=== PATIENT | male | born 1975 | race Caucasian/White ===

== ENCOUNTER 2021-11-04 04:21 | Emergency (ER) | payer BC, OTHER ==
[~2021-11-04] VITALS: Ht 182.9 cm; Wt 138.6 kg
[2021-11-04 04:40] VITALS: BP 163/99
[2021-11-04 05:22] LABS: Basophils # (auto) 0.1 10 ^3/uL (0-0.2); Basophils % (auto) 1.3 % (0.0-2.0); Eosinophils # (auto) 0.1 10 ^3/uL (0-0.8); Eosinophils % (auto) 1.6 % (0.0-7.0); Hematocrit 53.1 % (41.0-53.0); Hemoglobin 17.1 g/dL (13.5-17.5); Lymphocytes % (auto) 29.2 % (10.0-50.0); Mean Corpuscular Hemoglobin 28.5 pg (28.0-32.0); Mean Corpuscular Hgb Conc. 32.2 g/dL (32.0-36.0); Mean Corpuscular Volume 88.3 fL (80.0-100.0); Monocytes # (auto) 0.9 10 ^3/uL (0-1.3); Monocytes % (auto) 12.9 % (0.0-12.0); Neutrophils # (auto) 3.8 10 ^3/uL (1.6-8.6); Nucleated Red Blood Cells % 0.1 %; Red Blood Cells 6.01 10^6/uL (4.5-5.90); Red Cell Distribution Width 15.8 % (11.8-14.3)
[2021-11-04 05:40] LABS: Albumin 3.7 g/dL (3.4-5.0); Calcium 8.7 mg/dL (8.5-10.1); Magnesium 2.3 mg/dL (1.6-2.6); Potassium 4.1 mmol/L (3.5-5.1)
== END 2021-11-04 08:18 | disposition left against medical advice (07) ==
LOC: ER 04:21
DX: R51.9 Headache, unspecified (principal); R07.89 Other chest pain; Z53.21 Procedure and treatment not carried out due to patient leaving prior to being seen by health care provider
CPT/HCPCS: 36415; 70450; 71045; 80053; 83735; 83880; 84484; 85025; 93005

== ENCOUNTER 2024-02-09 11:31 | Inpatient (IN) | payer BC, MEDICAID ==
[~2024-02-09] VITALS: Ht 185.4 cm; Wt 133.6 kg
--- NOTE | 2024-02-09 13:51 | ED.PDOC ---
History of Present Illness HPI Comments 49 y/o M, Hx of DM, cholelithiasis, HLD, HTN, and obesity, presents with c/o abdominal and back pain, abdominal distension, nausea, vomiting, and diarrhea, today. Patient endorses on sudden onset of symptoms at 0200, this morning. Patient comments on pain originating and distension localized around his RUQ r egion, with pain radiating to his RLQ and back and rates it a 9.5/10 in severity, currently. He also reports on vomiting 26x and having multiple diarrhea episodes with "green bile" production. Patient admits to Hx of "gallstones" diagnosis 1x year ago and consuming EtOH and spice food, last night. Patient endorses no additional relevant or pertinent Hx, such as recent injuries or sick contact. He denies having any hematemesis, hematochezia, urinary symptoms, or other associated symptoms or modifiers at this time. Chief Complaint: Abdominal Pain Time Seen by MD: 13:30 Reviewed Notes: Nurses Notes, Medications, Allergies Allergies: Coded Allergies: NO KNOWN ALLERGIES (Unverified , 11/04/21) Information Source: Patient Mode of Arrival: Ambulatory Severity: Moderate Timing: Hours Duration: Since onset Prehospital treatment: None Past Medical History PAST MEDICAL HISTORY: DM, Gallstones, High Lipids, HTN Past Medical History (Other): obesity Surgical History: Hernia Repair (umbilical and inguinal hernias ) Family History Family History: Reviewed,noncontributory to illness, No family hx of Cancer, No family hx of Heart lisbeth, No family hx of HTN, No family hx ofKidney lisbeth, No family hx of Liver lisbeth, No family hx of Lung lisbeth, No family hx of Stroke, Family hx of DM Social History Smoker: Non-Smoker Alcohol: Occasionally Drugs: Denies Drug Use Lives In: Home Constitutional: denies: chills, diaphoresis, fatigue, fever, malaise, sweats, weakness, others EENTM: denies: blurred vision, double vision, ear bleeding, ear discharge, ear drainage, ear pain, ear ringing, eye pain, eye redness, hearing loss, mouth pain, mouth swelling, nasal discharge, nose bleeding, nose congestion, nose pain, photophobia, tearing, throat pain, throat swelling, voice changes, others Respiratory: denies: cough, hemoptysis, orthopnea, SOB at rest, shortness of breath, SOB with excertion, stridor, wheezing, others Cardiovascular: denies: chest pain, dizzy spells, diaphoresis, Dyspnea on exertion, edema, irregular heart beat, left arm pain, lightheadedness, palpitations, PND, syncope, others Gastrointestinal: reports: abdomen distended, abdominal pain, diarrhea, nausea, vomiting; denies: blood streaked bowels, constipated, dysphagia, difficulty swallowing, hematemesis, melena, poor appetite, poor fluid intake, rectal bleeding, rectal pain, others Genitourinary: denies: burning, dysuria, flank pain, frequency, hematuria, incontinence, penile discharge, penile sore, pain, testicle pain, testicle swelling, urgency, others Neurological: denies: dizziness, fainting, headache, left sided numbness, left sided weakness, numbness, paresthesia, pre-existing deficit, right sided numbness, right sided weakness, seizure, speech problems, tingling, tremors, wea kness, others Musculoskeletal: reports: back pain; denies: gout, joint pain, joint swelling, muscle pain, muscle stiffness, neck pain, others Integumetry: denies: bruises, change in color, change in hair/nails, dryness, laceration, lesions, lumps, rash, wounds, others Allergic/Immunocompromised: denies: Difficulty Healing, Frequent Infections, Hives, Itching, others Hematologic/Lymphatic: denies: anemia, blood clots, easy bleeding, easy bruising, swollen glands, others Endocrine: denies: excessive hunger, excessive sweating, excessive thirst, excessive urination, flushing, intolerance to cold, intolerance to heat, unexplained weight gain, unexplained weight loss, others Psychiatric: denies: anxiety, bipolar disorder, depression, hopeless, panic disorder, schizophrenia, sleepless, suicidal, others All Other Systems: Reviewed and Negative Physical Exam General Appearance: Moderate Distress HEENT: Normal ENT Inspection, Pharynx Normal, TMs Normal Neck: Full Range of Motion, Non-Tender, Normal, Normal Inspection Respiratory: Chest Non-Tender, Lungs Clear, No Accessory Muscle Use, No Respiratory Distress, Normal Breath Sounds Cardiovascular: No Edema, No JVD, No Murmur, No Gallop, Normal Peripheral Pulses, Regular Rate/Rhythm Breast Exam: Deferred Gastrointestinal: No Organomegaly, No Pulsatile Mass, Normal Bowel Sounds, RLQ, RUQ, Soft, Tenderness Genitalia: Deferred Pelvic: Deferred Rectal: Deferred Extremities: No calf tenderness, Normal capillary refill, No pedal edema Musculoskeletal : Apperance: Normal 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 Was a procedure done?: No Differential Dx Considerations may include: cholelithiasis, cholecystitis, gastritis, gastroenteritis, colitis, GERD PUD, spoiled food, UTI X-Ray, Labs, Meds, VS Vital Signs Date Time Temp Pulse Resp B/P (MAP) Pulse Ox O2 Delivery O2 Flow Rate FiO2 02/09/24 12:01 111 02/09/24 11:57 97.4 116 20 124/78 (93) 97 Lab Test 02/09/24 13:50 02/09/24 11:44 Range/Units White Blood Count 8.2 4.4-10.8 10^3/uL Red Blood Count 5.49 4.5-5.90 10^6/uL Hemoglobin 17.1 13.5-17.5 g/dL Hematocrit 50.7 41.0-53.0 % Mean Corpuscular Volume 92.2 80.0-100.0 fL Mean Corpuscular Hemoglobin 31.1 28.0-32.0 pg Mean Corpuscular Hemoglobin Concent 33.7 32.0-36.0 g/dL Red Cell Distribution Width 12.9 11.8-14.3 % Platelet Count 158 140-450 10^3/uL Mean Platelet Volume 10.1 6.9-10.8 fL Neutrophils (%) (Auto) 89.8 H 37.0-80.0 % Lymphocytes (%) (Auto) 5.5 L 10.0-50.0 % Monocytes (%) (Auto) 4.3 0.0-12.0 % Eosinophils (%) (Auto) 0.2 0.0-7.0 % Basophils (%) (Auto) 0.2 0.0-2.0 % Neutrophils # (Auto) 7.4 1.6-8.6 10 ^3/uL Lymphocytes # (Auto) 0.5 0.4-5.4 10 ^3/uL Monocytes # (Auto) 0.4 0-1.3 10 ^3/uL Eosinophils # (Auto) 0 0-0.8 10 ^3/uL Basophils # (Auto) 0 0-0.2 10 ^3/uL Nucleated Red Blood Cells 0.1 % Sodium Level 134 L 136-145 mmol/L Potassium Level 4.2 3.5-5.1 mmol/L Chloride Level 104 98-107 mmol/L Carbon Dioxide Level 21 20-31 mmol/L Anion Gap 9 5-15 Blood Urea Nitrogen 13 9-23 mg/dL Creatinine 0.92 0.700-1.30 mg/dL Glomerular Filtration Rate Calc 101 >90 mL/min BUN/Creatinine Ratio 14.1 10.0-20.0 Serum Glucose 359 H 74-106 mg/dL Hemoglobin A1c Pending Calcium Level 9.9 8.7-10.4 mg/dL Total Bilirubin 1.8 H 0.2-1.0 mg/dL Aspartate Amino Transferase (AST) 30 13-40 U/L Alanine Aminotransferase (ALT) 58 H 7-40 U/L Alkaline Phosphatase 111 46-116 U/L Total Protein 7.4 5.7-8.2 g/dL Albumin 4.7 3.2-4.8 g/dL Lipase 31 12-53 U/L POC Glucose 384 H 70-106 mg/dl PROCEDURE(s): ABPL - CT AB PEL WO CON-NO ORAL OR IV IMPRESSION: 1. Hazy appearance of the mesenteric root with small shotty mesenteric lymph nodes. The findings May relate to mesenteric panniculitis versus sclerosing mesenteritis. 2. Hepatic steatosis. 3. Cholelithiasis. The patient was still having abdominal pain. The patient was being admitted with a diagnosis of cholelithiasis The patient's liver enzymes are basically within normal range but the total bilirubin is elevated at 1.8 The chemistry panel is within normal limits At this time, the patient will be admitted to the hospitalist. The diagnosis intractable abdominal pain as well as cholelithiasis Images Reviewed?: Images reviewed and evaluated by me Time of 1ST Reevaluation: 14:00 Reevaluation 1ST: Unchanged Patient Education/Counseling: Diagnosis, Treatment, Prognosis Family Education/Counseling: No Family Present Departure 1 Departure Time of Disposition: 16:47 Impression: Primary Impression: Intractable abdominal pain Additional Impression: Cholelithiasis Qualified Codes: K80.20 - Calculus of gallbladder without cholecystitis without obstruction Disposition: ADMITTED INPATIENT Admit to: Med Surg Condition: Fair Critical Care Note Critical Care Time?: No Stability Stability form required: Yes Unstable for transfer: ED Physician Assesment (Clinical assesment) Heart Score Heart Score: Heart Score Response (Comments) Value History N/A 0 EKG N/A 0 Age N/A 0 Risk Factors N/A 0 Troponin N/A 0 Total 0 I personally scribed for SAM FERNANDEZ MD ([email or web address]) on 02/09/24 at 13:51. Electronically submitted by Mauro Mclaughlin ([email or web address]). I personally scribed for SAM FERNANDEZ MD ([email or web address]) on 02/09/24 at 14:10. Electronically submitted by Mauro Mclaughlin ([email or web address]). SAM FERNANDEZ MD Feb 09, 2024 13:51
--- NOTE | 2024-02-09 14:03 | DVH ---
CT ABDOMEN AND PELVIS WITHOUT CONTRAST CLINICAL HISTORY: pain TECHNIQUE: Multiple contiguous axial images of the abdomen and pelvis without intravenous contrast. The images were reformatted degenerate coronal and sagittal reconstructions. All CT scans at this medical facility are performed using dose modulation techniques as appropriate t o a performed exam including the following:Automated exposure control was utilized; adjustment of the MA and/or KV according to patient size; and use of iterative reconstruction technique. Radiation Dose Information: CT Dose: CTDI volume is 25.01 mGy. Dose-length product is 1538.45 mGy*cm Comparison: None FINDINGS: Evaluation of the abdomen and pelvis is limited without intravenous contrast. There is diffuse fatty infiltration of the liver. There are small calcified gallstones in the gallbl adder. The pancreas, kidneys, adrenal glands, and spleen appear within normal limits. There is hazy appearance of the mesenteric root with small shotty mesenteric lymph nodes. There is no retroperitoneal lymphadenopathy. There is no free fluid or free air. The stomach grossly appears unremarkable. The small and large bowel loops demonstrate normal caliber . A normal-appearing appendix is seen in the right lower quadrant abdomen. The abdominal aorta and IVC appear within normal limits. The bladder appears unremarkable for the degree of distention. Pelvic organ appears within normal rinaldi its. There is no gross evidence of a pelvic mass. There is no free fluid collection. Lung bases are clear. There is no acute osseous abnormality. IMPRESSION: 1. Hazy appearance of the mesenteric root with small shotty mesenteric lymph nodes. The findings May relate to mesenteric panniculitis versus sclerosing mesenteritis. 2. Hepatic steatosis. 3. Cholelithiasis. HS:Y
[2024-02-09 14:10] LABS: Basophils # (auto) 0 10 ^3/uL (0-0.2); Basophils % (auto) 0.2 % (0.0-2.0); Eosinophils # (auto) 0 10 ^3/uL (0-0.8); Eosinophils % (auto) 0.2 % (0.0-7.0); Hematocrit 50.7 % (41.0-53.0); Hemoglobin 17.1 g/dL (13.5-17.5); Lymphocytes # (auto) 0.5 10 ^3/uL (0.4-5.4); Lymphocytes % (auto) 5.5 % (10.0-50.0); Mean Corpuscular Hemoglobin 31.1 pg (28.0-32.0); Mean Corpuscular Hgb Conc. 33.7 g/dL (32.0-36.0); Mean Corpuscular Volume 92.2 fL (80.0-100.0); Monocytes # (auto) 0.4 10 ^3/uL (0-1.3); Monocytes % (auto) 4.3 % (0.0-12.0); Neutrophils # (auto) 7.4 10 ^3/uL (1.6-8.6); Neutrophils % (auto) 89.8 % (37.0-80.0); Nucleated Red Blood Cells % 0.1 %; Platelet Count (auto) 158 10^3/uL (140-450); Red Blood Cells 5.49 10^6/uL (4.5-5.90); Red Cell Distribution Width 12.9 % (11.8-14.3); White Blood Cell 8.2 10^3/uL (4.4-10.8)
[2024-02-09 14:29] LABS: Albumin 4.7 g/dL (3.2-4.8); Alkaline Phosphatase 111 U/L (46-116); Anion Gap 9 (5-15); Aspartate Aminotransferase 30 U/L (13-40); BUN/Creatinine Ratio 14.1 (10.0-20.0); Blood Urea Nitrogen 13 mg/dL (9-23); Calcium 9.9 mg/dL (8.7-10.4); Carbon Dioxide 21 mmol/L (20-31); Chloride 104 mmol/L (98-107); Lipase 31 U/L (12-53); Potassium 4.2 mmol/L (3.5-5.1)
[2024-02-09 14:33] LABS: Alanine Aminotransferase 58 U/L (7-40); Glucose 359 mg/dL (74-106); Sodium 134 mmol/L (136-145)
[2024-02-09 14:48] LABS: Total Protein 7.4 g/dL (5.7-8.2)
[2024-02-09 14:55] LABS: Bilirubin, Total 1.8 mg/dL (0.2-1.0)
[2024-02-09] MEDS ORDERED: ACETAMINOPHEN 325 MG TAB PO PRN (16:00)
[2024-02-09] MEDS ORDERED: MORPHINE SULFATE INJ 2 MG/ml SYRG IV PRN (16:00)
[2024-02-09] MEDS ORDERED: ONDANSETRON HCL 4 MG/2 ML VIAL IV PRN (16:00)
[2024-02-09] MEDS ORDERED: DEXTROSE (50%) 50ML SYRG IV PRN (16:00)
[2024-02-09] MEDS ORDERED: FAMOTIDINE (10MG/ML) 2ML VL IV ONE (16:15)
--- NOTE | 2024-02-09 16:15 | DVHHP2 ---
History of Present Illness Reason for Visit: Nausea, vomiting, diarrhea, and abdominal pain History of Present Illness Yasir Borja is a 49-year-old male with past medical history of hypertension, hyperlipidemia, diabetes, cholelithiasis, and obesity who presents to the ED for nausea, vomiting, diarrhea, abdominal pain, and abdominal distention x1 day. Patient reports that around 2:00 a.m. this morning he woke up with sharp, constant, bloating, and 9.5/10 pain. Patient reports that last night he had a [place] dinner of tamales and mole. Patient reports that he vo mited around 15 times today along with diarrhea with output of bile like stool and bile like vomit. Patient reports that he is not taking his metformin but he is taking his lisinopril, simvastatin, and omeprazole. Patient states he is visiting here from his [place]. Patient denies any chest pain, shortness of breath, fever, chills, lightheadedness, and dizziness. Cardiovascular: HTN, hyperipidemia Hepatobiliary: Cholelithiasis Endocrine: Diabetes Past Medical History Obesity Past Surgical History: Hernia Repair Past Surgical History Hand surgery over 15 years ago for a fracture playing football Family History: DM, Other Family History Grandma breast cancer Smoke: No ALCOHOL: occassional Drugs: None Lives: Alone Domestic Violence: Neg Review of Systems Constitutional: No: Fever, Chills, Sweats, Weakness, Malaise, Other Eyes: No: Pain, Vision change, Conjunctivae inflammation, Eyelid inflammation, Other, Redness ENT: No: Ear pain, Ear discharge, Nose pain, Nose discharge, Nose congestion, Mouth pain, Mouth swelling, Throat pain, Throat swelling, Other Respiratory: No: Cough, Dry, Shortness of breath, SOB with excertion, Wheezing, Hemoptysis, Pleuritic Pain, Sputum, Wheezing, Other Cardiovascular: No: Chest Pain, Palpitations, Orthopnea, Paroxysmal Noc. Dyspnea, Edema, Lt Headedness, Other Gastrointestinal: Nausea, Vomiting, Abdominal Pain, Diarrhea, Other (Abdominal distention); No: Constipation, Melena, Hematochezia Genitourinary: No Dysuria, No Frequency, No Incontinence, No Hematuria, No Retention, No Other Musculoskeletal: No: other, neck pain, shoulder pain, arm pain, back pain, hand pain, leg pain, foot pain Skin: No: Rash, Lesions, Jaundice, Bruising, Other Neurological: No: Weakness, Numbness, Incoordination, Change in speech, Confusion, Seizures, Other Allergies: Coded Allergies: NO KNOWN ALLERGIES (Unverified , 11/04/21) Exam Vital Signs Vital Signs Date Time Temp Pulse Resp B/P (MAP) Pulse Ox O2 Delivery O2 Flow Rate FiO2 02/09/24 12:01 111 02/09/24 11:57 97.4 20 124/78 (93) 97 General Appearance: Alert, Oriented X3, Cooperative, No acute distress HEENT: Atraumatic, PERRLA, EOMI, Mucous membr. moist/pink Respiratory: Clear to auscultation, Normal air movement Cardiovascular: Regular rate, Normal S1, Normal S2, No murmurs Abdominal: No masses Extremities: No clubbing, No cyanosis, No edema, Normal pulses, No tenderness/swelling Skin: No rashes, No breakdown, No significant lesion Neuro: Normal gait, Normal speech, Strength at 5/5 X4 ext, Normal tone, Sensation intact Psych/Mental Status: Mental status NL, Mood NL Labs/Xrays Labs Test 02/09/24 13:50 02/09/24 11:44 Range/Units White Blood Count 8.2 4.4-10.8 10^3/uL Red Blood Count 5.49 4.5-5.90 10^6/uL Hemoglobin 17.1 13.5-17.5 g/dL Hematocrit 50.7 41.0-53.0 % Mean Corpuscular Volume 92.2 80.0-100.0 fL Mean Corpuscular Hemoglobin 31.1 28.0-32.0 pg Mean Corpuscular Hemoglobin Concent 33.7 32.0-36.0 g/dL Red Cell Distribution Width 12.9 11.8-14.3 % Platelet Count 158 140-450 10^3/uL Mean Platelet Volume 10.1 6.9-10.8 fL Neutrophils (%) (Auto) 89.8 H 37.0-80.0 % Lymphocytes (%) (Auto) 5.5 L 10.0-50.0 % Monocytes (%) (Auto) 4.3 0.0-12.0 % Eosinophils (%) (Auto) 0.2 0.0-7.0 % Basophils (%) (Auto) 0.2 0.0-2.0 % Neutrophils # (Auto) 7.4 1.6-8.6 10 ^3/uL Lymphocytes # (Auto) 0.5 0.4-5.4 10 ^3/uL Monocytes # (Auto) 0.4 0-1.3 10 ^3/uL Eosinophils # (Auto) 0 0-0.8 10 ^3/uL Basophils # (Auto) 0 0-0.2 10 ^3/uL Nucleated Red Blood Cells 0.1 % Sodium Level 134 L 136-145 mmol/L Potassium Level 4.2 3.5-5.1 mmol/L Chloride Level 104 98-107 mmol/L Carbon Dioxide Level 21 20-31 mmol/L Anion Gap 9 5-15 Blood Urea Nitrogen 13 9-23 mg/dL Creatinine 0.92 0.700-1.30 mg/dL Glomerular Filtration Rate Calc 101 >90 mL/min BUN/Creatinine Ratio 14.1 10.0-20.0 Serum Glucose 359 H 74-106 mg/dL Calcium Level 9.9 8.7-10.4 mg/dL Total Bilirubin 1.8 H 0.2-1.0 mg/dL Aspartate Amino Transferase (AST) 30 13-40 U/L Alanine Aminotransferase (ALT) 58 H 7-40 U/L Alkaline Phosphatase 111 46-116 U/L Total Protein 7.4 5.7-8.2 g/dL Albumin 4.7 3.2-4.8 g/dL Lipase 31 12-53 U/L POC Glucose 384 H 70-106 mg/dl CT ABDOMEN AND PELVIS WITHOUT CONTRAST CLINICAL HISTORY: pain TECHNIQUE: Multiple contiguous axial images of the abdomen and pelvis without intravenous contrast. The images were reformatted degenerate coronal and sagittal reconstructions. All CT scans at this medical facility are performed using dose modulation tech niques as appropriate to a performed exam including the following:Automated exposure control was utilized; adjustment of the MA and/or KV according to patient size; and use of iterative reconstruction technique. Radiation Dose Information: CT Dose: CTDI volume is 25.01 mGy. Dose-length product is 1538.45 mGy*cm Comparison: None FINDINGS: Evaluation of the abdomen and pelvis is limited without intravenous contrast. There is diffuse fatty infiltration of the liver. There are small calcified gallstones in the gallbladder. The pancreas, kidneys, adrenal glands, and spleen appear within normal limits. There is hazy appearance of the mesenteric root with small shotty mesenteric lymph nodes. There is no retroperitoneal lymphadenopathy. There is no free fluid or free air. The stomach grossly appears unremarkable. The small and large bowel loops demonstrate normal caliber. A normal-appearing appendix is seen in the right lower quadrant abdomen. The abdominal aorta and IVC appear within normal limits. The bladder appears unremarkable for the degree of distention. Pelvic organ appears within normal limits. There is no gross evidence of a pelvic mass. There is no free fluid collection. Lung bases are clear. There is no acute osseous abnormality. IMPRESSION: 1. Hazy appearance of the mesenteric root with small shotty mesenteric lymph nodes. The findings May relate to mesenteric panniculitis versus sclerosing mesenteritis. 2. Hepatic steatosis. 3. Cholelithiasis. Assessment/Plan Assessment/Plan Assessment/Plan: Intractable abdominal pain likely due to mesenteric panniculitis vs sclerosing mesenteritis Hepatic steatosis Cholelithiasis GI cx ct a/p noted labs pain management antiemetics ua am labs ekg lipase IV steroids DM2 HgbA1C ISS and accuchecks Obesity Educated patient on lifestyle modifications, diet, and exercise ETOH use Counseled patient on cessation of EtOH FEN/PPX NPO IVf DVT ppx not indicated patient is ambulating PUD ppx famotidine Admit to med surg Home medications reconciled Discussed plan of care with patient and nurse Plan discussed with: Patient Date of Service: Feb 09, 2024 Billing Provider: JOHANNA RIVAS Common Visit Codes: [id number] INP/OBS CARE (MOD) JOHANNA RIVAS Feb 09, 2024 16:14
[2024-02-09] MEDS: SODIUM CHLORIDE 0.9% 1,000 ML IV SCH (17:36)
[2024-02-09 18:24] VITALS: PULSE 101; RESP 16; O2SAT 95
[2024-02-09] MEDS: methylPREDNISolone SOD SUCC 40 MG/ML VL IM ONE (18:37)
[2024-02-09] MEDS: ACCU-CHEK COMFORT CURVE STRIP VI SCH (18:45)
[2024-02-09] MEDS: InsuLIN REG 1unit/0.01ml Soln (100units/ml) SC SCH (18:56)
[2024-02-09] MEDS ORDERED: LISI20TA56 PO (21:56)
[2024-02-09] MEDS ORDERED: SIMV20TA20 PO (21:56)
[2024-02-09] MEDS ORDERED: METF-370 PO (21:56)
[2024-02-09] MEDS ORDERED: OMEP20TA PO (21:56)
[2024-02-09] MEDS: FAMOTIDINE (10MG/ML) 2ML VL IV SCH (22:21)
[2024-02-09] MEDS: HYDROcodone-ACET 5/325MG TAB PO PRN (22:23)
[2024-02-09 22:59] VITALS: BP 120/68; PULSE 100; RESP 19; TEMP 99; O2SAT 96
[2024-02-10 01:00] VITALS: BP 107/63; PULSE 98; RESP 19; TEMP 99.1; O2SAT 94
[2024-02-10 05:00] VITALS: BP 106/71; PULSE 82; RESP 20; TEMP 97.9; O2SAT 95
[2024-02-10 07:08] LABS: Urine Bacteria None Seen /hpf (None Seen)
[2024-02-10 07:27] LABS: Urine Blood Negative /uL (Negative); Urine Clarity Clear (Clear); Urine Color Light-Yellow (Yellow); Urine Protein, UAD Negative (Negative); Urine Specific Gravity 1.046 (1.001-1.035); Urine Squamous Epithelial Cell FEW /hpf (<5); Urine Urobilinogen Normal (Negative); Urine WBC 1 /hpf (0 - 3); Urine pH 5.5 (5.0-9.0)
[2024-02-10 07:46] LABS: Basophils # (auto) 0 10 ^3/uL (0-0.2); Basophils % (auto) 0.1 % (0.0-2.0); Eosinophils # (auto) 0 10 ^3/uL (0-0.8); Hematocrit 43.6 % (41.0-53.0); Hemoglobin 14.5 g/dL (13.5-17.5); Lymphocytes # (auto) 0.9 10 ^3/uL (0.4-5.4); Lymphocytes % (auto) 14.8 % (10.0-50.0); Mean Corpuscular Hemoglobin 30.6 pg (28.0-32.0); Mean Corpuscular Hgb Conc. 33.3 g/dL (32.0-36.0); Monocytes # (auto) 0.5 10 ^3/uL (0-1.3); Monocytes % (auto) 7.9 % (0.0-12.0); Neutrophils # (auto) 4.6 10 ^3/uL (1.6-8.6); Neutrophils % (auto) 77.2 % (37.0-80.0); Nucleated Red Blood Cells % 0.1 %; Platelet Count (auto) 144 10^3/uL (140-450); Red Blood Cells 4.74 10^6/uL (4.5-5.90); Red Cell Distribution Width 13.2 % (11.8-14.3); White Blood Cell 5.9 10^3/uL (4.4-10.8)
[2024-02-10 08:19] LABS: Albumin 3.8 g/dL (3.2-4.8); Alkaline Phosphatase 84 U/L (46-116); Anion Gap 9 (5-15); Aspartate Aminotransferase 19 U/L (13-40); BUN/Creatinine Ratio 15.1 (10.0-20.0); Blood Urea Nitrogen 14 mg/dL (9-23); Chloride 109 mmol/L (98-107); Potassium 3.7 mmol/L (3.5-5.1); Sodium 138 mmol/L (136-145)
[2024-02-10 08:20] LABS: Alanine Aminotransferase 48 U/L (7-40); Bilirubin, Total 1.3 mg/dL (0.2-1.0); Calcium 8.6 mg/dL (8.7-10.4); Carbon Dioxide 20 mmol/L (20-31); Glucose 276 mg/dL (74-106)
[2024-02-10 08:32] VITALS: BP 112/69; PULSE 83; RESP 18; TEMP 98; O2SAT 96
[2024-02-10] MEDS: methylPREDNISolone SOD SUCC 40 MG/ML VL IV SCH (09:20)
[2024-02-10] MEDS ORDERED: DEXTROSE (50%) 50ML SYRG IV PRN (11:15)
--- NOTE | 2024-02-10 11:18 | DVHPN2 ---
Reviewed: Care Plan, H&P, Labs, Medications, Previous Orders, Radiology Changes from previous H/P or p: No Changes Eyes: No Pain, No Vision change, No Conjunctivae inflammation, No Eyelid inflammation, No Other, No Redness ENT: No Ear pain, No Ear discharge, No Nose pain, No Nose discharge, No Nose congestion, No Mouth pain, No Mouth swelling, No Throat pain, No Throat swelling, No Other Cardiovascular: No Chest Pain, No Palpitations, No Orthopnea, No Paroxysmal Noc. Dyspnea, No Edema, No Lt Headedness, No Other Respiratory: No Cough, No Dry, No Shortness of breath, No SOB with excertion, No Wheezing, No Hemoptysis, No Pleuritic Pain, No Sputum, No Other Gastrointestinal: Nausea, Vomiting, Abdominal Pain, Diarrhea; No Constipation, No Melena, No Hematochezia; Other (Abdominal distention) Genitourinary: No Dysuria, No Frequency, No Incontinence, No Hematuria, No Retention, No Other Musculoskeletal: No other, No neck pain, No shoulder pain, No arm pain, No back pain, No hand pain, No leg pain, No foot pain Skin: No Rash, No Lesions, No Jaundice, No Bruising, No Other Objective Vitals Vital Signs Date Time Temp Pulse Resp B/P (MAP) Pulse Ox O2 Delivery O2 Flow Rate FiO2 02/10/24 08:32 98.0 83 18 112/69 (83) 96 98.0 02/10/24 07:45 Room Air* 0 21 Intake/Output Intake and Output 02/10/24 07:00 Intake Total 0 ml Balance 0 ml Intake Oral 0 ml # Voids 1 Medications Current Medications Medications Dose Ordered Sig/Devyn Route Start Time Stop Time Status Last Admin Dose Admin Sodium Chloride 1,000 ml @ 100 mls/hr Q10H IV 02/09/24 16:00 02/10/24 00:07 100 MLS/HR Acetaminophen/ Hydrocodone Bitart 1 tab Q4HP PRN PO 02/09/24 16:00 02/10/24 09:23 1 TAB Ondansetron HCl 4 mg Q4HP PRN IV 02/09/24 16:00 Acetaminophen 650 mg Q6HP PRN PO 02/09/24 16:00 Morphine Sulfate 2 mg Q4HPRN PRN IV 02/09/24 16:00 Diagnostic Test (Pha) 1 strip Q6HR 02/09/24 18:00 02/10/24 05:32 1 STRIP Insulin Human Regular Q6HR SC 02/09/24 18:00 02/10/24 05:32 8 UNITS Dextrose 50 ml UD PRN IV 02/09/24 16:00 Methylprednisolone Sodium Succinate 40 mg DAILY IV 02/10/24 10:00 02/10/24 09:20 40 MG Famotidine 20 mg BID IV 02/09/24 22:00 02/10/24 09:20 20 MG Laboratory Results Laboratory Tests 02/10/24 06:55 Chemistry Test 02/09/24 13:50 02/10/24 06:55 Albumin 4.7 g/dL (3.2-4.8) 3.8 g/dL (3.2-4.8) Calcium Level 9.9 mg/dL (8.7-10.4) 8.6 mg/dL (8.7-10.4) L Total Protein 7.4 g/dL (5.7-8.2) 6.0 g/dL (5.7-8.2) Lipid panel Test 02/09/24 13:50 Lipase 31 U/L (12-53) LFT Test 02/09/24 13:50 02/10/24 06:55 Alanine Aminotransferase (ALT) 58 U/L (7-40) H 48 U/L (7-40) H Alkaline Phosphatase 111 U/L (46-116) 84 U/L (46-116) Aspartate Amino Transferase (AST) 30 U/L (13-40) 19 U/L (13-40) Total Bilirubin 1.8 mg/dL (0.2-1.0) H 1.3 mg/dL (0.2-1.0) H HgA1c, TSH Test 02/09/24 13:50 Hemoglobin A1c 12.3 % A1C (<5.7) H Urinalysis Test 02/10/24 07:00 Urine Color Light-yellow (Yellow) Urine Clarity Clear (Clear) Urine pH 5.5 (5.0-9.0) Urine Specific [place] 1.046 (1.001-1.035) Urine Protein Negative (Negative) Urine Ketones 3+ (Negative) H Urine Blood Negative /uL (Negative) Urine Nitrite Negative (Negative) Urine Bilirubin Negative (Negative) Urine Urobilinogen Normal mg/dL (Negative) Urine Leukocyte Esterase Negative /uL (Negative) Urine RBC <1 /hpf (0 - 3) Urine WBC 1 /hpf (0 - 3) Urine Squamous Epithelial Cells Few /hpf (<5) Urine Bacteria None seen /hpf (None Seen) Urine Glucose 4+ mg/dL (Normal) H Labs and/or images reviewed: Labs reviewed by me, Image(s) reviewed by me Assessment/Plan Assessment/Plan Abdominal Pain nausea and vomiting secondary to uncontrolled diabetes consult for GI Dr. Jeannie Bains Uncontrolled diabetes with a blood sugars of 384: Insulin aggressive sliding scale Acute dehydration: IV fluids Poorly-controlled diabetes A1c 12.3 diabetic education Hypertension Hypercholesterolemia Gallstones, no cholecystitis Chronic current alcohol abuse: Counseling Pancreatitis ruled out abdominal lipase Patient is from [place] visiting the [facility] Plan discussed with: Patient My Orders Orders - SHERIF BUSTILLO MD Procedure Category Date Status Time Drug Screen LAB 02/10/24 Transmitted 11:08 Blood Alcohol LAB 02/10/24 Transmitted 11:08 Glucose Blood PHA 02/10/24 Transmitted (Accu-Chek Comfort 12:00 Agressive Insulin Ss PHA 02/10/24 Transmitted 12:00 Dextrose 50% Syringe PHA 02/10/24 Transmitted 11:15 Date of Service: Feb 10, 2024 Billing Provider: SHERIF BUSTILLO MD Common Visit Codes: [id number] INP/OBS CARE([facility]) SHERIF BUSTILLO MD Feb 10, 2024 11:18
[2024-02-10] MEDS: ACCU-CHEK COMFORT CURVE STRIP VI SCH (11:34)
[2024-02-10] MEDS: InsuLIN REG 1unit/0.01ml Soln (100units/ml) SC SCH (11:43)
[2024-02-10 12:02] LABS: Opiate Scree,Urine Neg (NEGATIVE)
[2024-02-10 12:12] LABS: Amphetamine Screen, Urine Neg (NEGATIVE); Barbiturate Scree,Urine Neg (NEGATIVE); Benzodiazephine Screen, Urine Neg (NEGATIVE); Cannabinoid Screen, Urine Neg (NEGATIVE); Cocaine Screen, Urine Neg (NEGATIVE); Phencyclidine Screen, Urine Neg (NEGATIVE)
--- NOTE | 2024-02-10 12:31 | DVHINCON2 ---
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 No nausea or vomiting now. No hematemesis Pt dx c cholelithiasis 1 yr ago Patient diagnosed with diabetes, but has stopped taking his metformin Past Medical History: , hypertension hyperlipidemia, cholelithiasis, DM, obesity Past Surgical History: Hernia repair. Hand surgery Social History: NO smoking, drinking ETOH and use of illegal drugs. Family History: Noncontributory Review of Systems: Constitutional: no fever, chill, weight loss HEENT: no eye pain, no hearing loss, no oral lesion, no scleral icterus Heart: no chest pain, no chest pressure Lung: no cough, no dyspnea with exertion Abdomen: see HPI Physical exam: General: NAD, AAOX3 Chest: lung guerrero clear to auscultation Heart: RRR, no murmur Abdomen: non-distended,+ mild RUQ tenderness to palpation, +BS Labs: Labs Test 02/10/24 11:33 02/10/24 07:00 02/10/24 06:55 02/09/24 13:50 Range/Units POC Glucose 294 H 70-106 mg/dl Urine Color Light-yellow Yellow Urine Clarity Clear Clear Urine pH 5.5 5.0-9.0 Urine Specific [place] 1.046 H 1.001-1.035 Urine Protein Negative Negative Urine Ketones 3+ H Negative Urine Blood Negative Negative /uL Urine Nitrite Negative Negative Urine Bilirubin Negative Negative Urine Urobilinogen Normal Negative mg/dL Urine Leukocyte Esterase Negative Negative /uL Urine RBC <1 0 - 3 /hpf Urine WBC 1 0 - 3 /hpf Urine Squamous Epithelial Cells Few <5 /hpf Urine Bacteria None seen None Seen /hpf Urine Glucose 4+ H Normal mg/dL Urine Opiates Screen Neg NEGATIVE Urine Fentanyl Screen Neg NEGATIVE Urine Barbiturates Screen Neg NEGATIVE Urine Phencyclidine Screen Neg NEGATIVE Urine Amphetamines Screen Neg NEGATIVE Urine Benzodiazepines Screen Neg NEGATIVE Urine Cocaine Screen Neg NEGATIVE Urine Cannabinoids Screen Neg NEGATIVE White Blood Count 5.9 # 4.4-10.8 10^3/uL Red Blood Count 4.74 4.5-5.90 10^6/uL Hemoglobin 14.5 # 13.5-17.5 g/dL Hematocrit 43.6 # 41.0-53.0 % Mean Corpuscular Volume 92.0 80.0-100.0 fL Mean Corpuscular Hemoglobin 30.6 28.0-32.0 pg Mean Corpuscular Hemoglobin Concent 33.3 32.0-36.0 g/dL Red Cell Distribution Width 13.2 11.8-14.3 % Platelet Count 144 140-450 10^3/uL Mean Platelet Volume 10.0 6.9-10.8 fL Neutrophils (%) (Auto) 77.2 37.0-80.0 % Lymphocytes (%) (Auto) 14.8 10.0-50.0 % Monocytes (%) (Auto) 7.9 0.0-12.0 % Eosinophils (%) (Auto) 0.0 0.0-7.0 % Basophils (%) (Auto) 0.1 0.0-2.0 % Neutrophils # (Auto) 4.6 1.6-8.6 10 ^3/uL Lymphocytes # (Auto) 0.9 0.4-5.4 10 ^3/uL Monocytes # (Auto) 0.5 0-1.3 10 ^3/uL Eosinophils # (Auto) 0 0-0.8 10 ^3/uL Basophils # (Auto) 0 0-0.2 10 ^3/uL Nucleated Red Blood Cells 0.1 % Sodium Level 138 136-145 mmol/L Potassium Level 3.7 3.5-5.1 mmol/L Chloride Level 109 H 98-107 mmol/L Carbon Dioxide Level 20 20-31 mmol/L Anion Gap 9 5-15 Blood Urea Nitrogen 14 9-23 mg/dL Creatinine 0.93 0.700-1.30 mg/dL Glomerular Filtration Rate Calc 99 >90 mL/min BUN/Creatinine Ratio 15.1 10.0-20.0 Serum Glucose 276 H 74-106 mg/dL Calcium Level 8.6 L 8.7-10.4 mg/dL Total Bilirubin 1.3 H 0.2-1.0 mg/dL Aspartate Amino Transferase (AST) 19 13-40 U/L Alanine Aminotransferase (ALT) 48 H 7-40 U/L Alkaline Phosphatase 84 46-116 U/L Total Protein 6.0 5.7-8.2 g/dL Albumin 3.8 3.2-4.8 g/dL Plasma/Serum Blood Alcohol < 3.0 <10 mg/dL Hemoglobin A1c 12.3 H <5.7 % A1C Lipase 31 12-53 U/L Imaging: CT abdomen pelvis IMPRESSION: 1. Hazy appearance of the mesenteric root with small shotty mesenteric lymph nodes. The findings May relate to mesenteric panniculitis versus sclerosing mesenteritis. 2. Hepatic steatosis. 3. Cholelithiasis. Assessment: Abdominal pain Cholelithiasis Hepatic steatosis Plan: Discussed with Dr. Bains abdominal ultrasound and HIDA scan Surgical consult hold steroids for hypoglycemia and history of DM Start antibiotics Monitor labs Thank you for this consult Date of Service: Feb 10, 2024 Billing Provider: RACHAEL BUSTILLO Common Visit Codes: CONSULT ONLY Consultation Codes: [id number] CONSULT <60MIN RACHAEL BUSTILLO Feb 10, 2024 12:31
[2024-02-10 12:47] VITALS: BP 111/63; PULSE 75; RESP 16; TEMP 98.3; O2SAT 95
--- NOTE | 2024-02-10 13:04 | DVH ---
INDICATION: cholelithiasis TECHNIQUE: Multiple real-time sonographic images were obtained of the right upper quadrant. COMPARISON: None FINDINGS: The liver demonstrates increased echotexture without focal mass lesions. The liver measure s 20.7 cm. There is no intrahepatic or extrahepatic ductal dilatation. The common duct is not visualized Cholelithiasis. The gallbladder wall measures 0.2 cm and is within normal limits. The right kidney measures 11.5 cm. The right kidney is normal in contour, size, and shape. The echo genicity is normal. There is no hydronephrosis. The pancreas is not well visualized due to overlying bowel gas. IMPRESSION: Hepatic steatosis and hepatomegaly. Cholelithiasis.
--- NOTE | 2024-02-10 14:29 | DVH ---
Procedure: NM NM HIDA SCAN Exam Date: 02/10/2024 12:49 PM Clinical History: cholelithiasis, abdominal pain Comparison Study: 02/10/24 Nuclear Medicine Hepatobiliary Scan. Technique: Following the intravenous administration of 4.5 mCi of technetium 99m labeled Choletec multiple plana r abdominal planar images were obtained in anterior projection in 5 minute intervals for45 minutes . Right lateral images were obtained at 45 minutes after injection. Findings: The liver appears grossly normal in size. There is no abnormal persistence of the cardiac or blood po ol activity. There is prompt visualization of the gallbladder and excretion of activity into the smal l bowel. Impression: Unremarkable hepatobiliary study without evidence of acute cholecystitis.
[2024-02-10] MEDS: metroNIDAZOLE 500MG/100ML 100 ML IV SCH (15:37)
[2024-02-10 16:43] VITALS: BP 127/61; PULSE 83; RESP 18; TEMP 97.9; O2SAT 96
[2024-02-10 21:00] VITALS: BP 110/50; PULSE 69; RESP 20; TEMP 97.9; O2SAT 96
[2024-02-11 01:00] VITALS: BP 107/63; PULSE 80; RESP 20; TEMP 98; O2SAT 97
[2024-02-11 05:00] VITALS: BP 112/62; PULSE 75; RESP 20; TEMP 97.5; O2SAT 95
[2024-02-11 08:35] VITALS: BP 120/71; PULSE 70; RESP 14; TEMP 97.5; O2SAT 97
[2024-02-11] MEDS: cefTRIAXone 1GM/50ML D5W 50 ML IV SCH (10:05)
[2024-02-11] MEDS: SUCRALFATE 1 GM/10 ML ORAL SUSP PO SCH (10:06)
--- NOTE | 2024-02-11 10:34 | DVHPN2 ---
Reviewed: Care Plan, H&P, Labs, Medications, Previous Orders, Radiology Changes from previous H/P or p: No Changes Eyes: No Pain, No Vision change, No Conjunctivae inflammation, No Eyelid inflammation, No Other, No Redness ENT: No Ear pain, No Ear discharge, No Nose pain, No Nose discharge, No Nose congestion, No Mouth pain, No Mouth swelling, No Throat pain, No Throat swelling, No Other Cardiovascular: No Chest Pain, No Palpitations, No Orthopnea, No Paroxysmal Noc. Dyspnea, No Edema, No Lt Headedness, No Other Respiratory: No Cough, No Dry, No Shortness of breath, No SOB with excertion, No Wheezing, No Hemoptysis, No Pleuritic Pain, No Sputum, No Other Gastrointestinal: Nausea, Vomiting, Abdominal Pain, Diarrhea; No Constipation, No Melena, No Hematochezia; Other (Abdominal distention) Genitourinary: No Dysuria, No Frequency, No Incontinence, No Hematuria, No Retention, No Other Musculoskeletal: No other, No neck pain, No shoulder pain, No arm pain, No back pain, No hand pain, No leg pain, No foot pain Skin: No Rash, No Lesions, No Jaundice, No Bruising, No Other Objective Vitals Vital Signs Date Time Temp Pulse Resp B/P (MAP) Pulse Ox O2 Delivery O2 Flow Rate FiO2 02/11/24 08:35 97.5 70 14 120/71 (87) 97 97.5 02/11/24 07:46 Room Air* 0 21 Intake/Output Intake and Output 02/11/24 07:00 Intake Total 1050 ml Output Total 351 ml Balance 699 ml Intake Oral 0 ml IV Total 1050 ml Output Urine Total 350 ml Stool Total 1 ml # Voids 2 Medications Current Medications Medications Dose Ordered Sig/Devyn Route Start Time Stop Time Status Last Admin Dose Admin Sodium Chloride 1,000 ml @ 100 mls/hr Q10H IV 02/09/24 16:00 02/10/24 23:51 100 MLS/HR Acetaminophen/ Hydrocodone Bitart 1 tab Q4HP PRN PO 02/09/24 16:00 02/10/24 09:23 1 TAB Ondansetron HCl 4 mg Q4HP PRN IV 02/09/24 16:00 Acetaminophen 650 mg Q6HP PRN PO 02/09/24 16:00 Morphine Sulfate 2 mg Q4HPRN PRN IV 02/09/24 16:00 Famotidine 20 mg BID IV 02/09/24 22:00 02/11/24 10:06 20 MG Diagnostic Test (Pha) 1 strip IQ4HR 02/10/24 12:00 02/11/24 04:11 1 STRIP Insulin Human Regular IQ4HR SC 02/10/24 12:00 02/11/24 04:20 4 UNITS Dextrose 50 ml UD PRN IV 02/10/24 11:15 Ceftriaxone Sodium 50 ml @ 100 mls/hr DAILY@09 IV 02/11/24 09:00 02/11/24 10:05 100 MLS/HR Metronidazole 100 ml @ 100 mls/hr Q8HR IV 02/10/24 14:00 02/11/24 05:23 100 MLS/HR Sucralfate 1 gm QID@0600,1130,1700,2200 PO 02/11/24 11:30 02/11/24 10:06 1 GM Laboratory Results Laboratory Tests 02/10/24 06:55 Urinalysis Test 02/10/24 07:00 Urine Color Light-yellow (Yellow) Urine Clarity Clear (Clear) Urine pH 5.5 (5.0-9.0) Urine Specific [place] 1.046 (1.001-1.035) Urine Protein Negative (Negative) Urine Ketones 3+ (Negative) H Urine Blood Negative /uL (Negative) Urine Nitrite Negative (Negative) Urine Bilirubin Negative (Negative) Urine Urobilinogen Normal mg/dL (Negative) Urine Leukocyte Esterase Negative /uL (Negative) Urine RBC <1 /hpf (0 - 3) Urine WBC 1 /hpf (0 - 3) Urine Squamous Epithelial Cells Few /hpf (<5) Urine Bacteria None seen /hpf (None Seen) Urine Glucose 4+ mg/dL (Normal) H Labs and/or images reviewed: Labs reviewed by me, Image(s) reviewed by me Assessment/Plan Assessment/Plan Abdominal Pain nausea and vomiting secondary to uncontrolled diabetes consult for GI Dr. Jeannie Bains to rule out GI causes appreciated Uncontrolled diabetes with a blood sugars of 384: Insulin aggressive sliding scale Acute dehydration: IV fluids Poorly-controlled diabetes A1c 12.3 diabetic education Hypertension Hypercholesterolemia Gallstones, cholecystitis ruled out by negative HIDA scan, consult for surgeon Dr. Armando Bains Chronic current alcohol abuse: Counseling Pancreatitis ruled out lipase normal Patient is from [place] visiting the [facility] Plan discussed with: Patient My Orders Orders - SHERIF BUSTILLO MD Procedure Category Date Status Time Glucose Blood PHA 02/10/24 In Process (Accu-Chek Comfort 12:00 Insulin R (Human) PHA 02/10/24 In Process (Insulin R) 12:00 Dextrose 50% Syringe PHA 02/10/24 In Process 11:15 * Gi [employer] Operator CONS 02/10/24 Transmitted 11:27 * Surgical Consult CONS 02/11/24 Transmitted 10:23 Date of Service: Feb 11, 2024 Billing Provider: SHERIF BUSTILLO MD Common Visit Codes: [id number] INP/OBS CARE([facility]) SHERIF BUSTILLO MD Feb 11, 2024 10:34
--- NOTE | 2024-02-11 15:00 | DVHINCON2 ---
Date of service: Feb 11, 2024 Family History: Patient reports no known family medical history. Allergies: Coded Allergies: NO KNOWN ALLERGIES (Unverified , 11/04/21) Home Meds Reported Medications Metformin Hydrochloride (Metformin Hcl) 500 Mg Tab, 1 TAB PO BID, #60 TAB 3 Refills 02/09/24 Simvastatin (Simvastatin) 20 Mg Tab, 1 TAB PO QPM, #30 TAB 5 Refills 02/09/24 Lisinopril (Lisinopril) 20 Mg Tab, 1 TAB PO DAILY, #30 TAB 5 Refills 02/09/24 Omeprazole (Gnp Omeprazole) 20 Mg Tab, 1 TAB PO DAILY, #90 TAB 1 Refill 02/09/24 Current Medications Current Medications Medications (Trade) Dose Ordered Sig/Devyn Route PRN Reason Start Time Stop Time Status Last Admin Ceftriaxone Sodium 50 ml @ 100 mls/hr DAILY@09 IV 02/11/24 09:00 02/11/24 10:05 Sucralfate (Carafate Susp) 1 gm QID@0600,1130,1700,2200 PO 02/11/24 11:30 02/11/24 10:06 Vital Signs Vital Signs Date Time Temp Pulse Resp B/P (MAP) Pulse Ox O2 Delivery O2 Flow Rate FiO2 02/11/24 08:35 97.5 70 14 120/71 (87) 97 97.5 02/11/24 07:46 Room Air* 0 21 Labs/Diagnostic Data Labs Test 02/11/24 11:58 02/10/24 07:00 02/10/24 06:55 02/09/24 13:50 Range/Units POC Glucose 266 H 70-106 mg/dl Urine Color Light-yellow Yellow Urine Clarity Clear Clear Urine pH 5.5 5.0-9.0 Urine Specific [place] 1.046 H 1.001-1.035 Urine Protein Negative Negative Urine Ketones 3+ H Negative Urine Blood Negative Negative /uL Urine Nitrite Negative Negative Urine Bilirubin Negative Negative Urine Urobilinogen Normal Negative mg/dL Urine Leukocyte Esterase Negative Negative /uL Urine RBC <1 0 - 3 /hpf Urine WBC 1 0 - 3 /hpf Urine Squamous Epithelial Cells Few <5 /hpf Urine Bacteria None seen None Seen /hpf Urine Glucose 4+ H Normal mg/dL Urine Opiates Screen Neg NEGATIVE Urine Fentanyl Screen Neg NEGATIVE Urine Barbiturates Screen Neg NEGATIVE Urine Phencyclidine Screen Neg NEGATIVE Urine Amphetamines Screen Neg NEGATIVE Urine Benzodiazepines Screen Neg NEGATIVE Urine Cocaine Screen Neg NEGATIVE Urine Cannabinoids Screen Neg NEGATIVE White Blood Count 5.9 # 4.4-10.8 10^3/uL Red Blood Count 4.74 4.5-5.90 10^6/uL Hemoglobin 14.5 # 13.5-17.5 g/dL Hematocrit 43.6 # 41.0-53.0 % Mean Corpuscular Volume 92.0 80.0-100.0 fL Mean Corpuscular Hemoglobin 30.6 28.0-32.0 pg Mean Corpuscular Hemoglobin Concent 33.3 32.0-36.0 g/dL Red Cell Distribution Width 13.2 11.8-14.3 % Platelet Count 144 140-450 10^3/uL Mean Platelet Volume 10.0 6.9-10.8 fL Neutrophils (%) (Auto) 77.2 37.0-80.0 % Lymphocytes (%) (Auto) 14.8 10.0-50.0 % Monocytes (%) (Auto) 7.9 0.0-12.0 % Eosinophils (%) (Auto) 0.0 0.0-7.0 % Basophils (%) (Auto) 0.1 0.0-2.0 % Neutrophils # (Auto) 4.6 1.6-8.6 10 ^3/uL Lymphocytes # (Auto) 0.9 0.4-5.4 10 ^3/uL Monocytes # (Auto) 0.5 0-1.3 10 ^3/uL Eosinophils # (Auto) 0 0-0.8 10 ^3/uL Basophils # (Auto) 0 0-0.2 10 ^3/uL Nucleated Red Blood Cells 0.1 % Sodium Level 138 136-145 mmol/L Potassium Level 3.7 3.5-5.1 mmol/L Chloride Level 109 H 98-107 mmol/L Carbon Dioxide Level 20 20-31 mmol/L Anion Gap 9 5-15 Blood Urea Nitrogen 14 9-23 mg/dL Creatinine 0.93 0.700-1.30 mg/dL Glomerular Filtration Rate Calc 99 >90 mL/min BUN/Creatinine Ratio 15.1 10.0-20.0 Serum Glucose 276 H 74-106 mg/dL Calcium Level 8.6 L 8.7-10.4 mg/dL Total Bilirubin 1.3 H 0.2-1.0 mg/dL Aspartate Amino Transferase (AST) 19 13-40 U/L Alanine Aminotransferase (ALT) 48 H 7-40 U/L Alkaline Phosphatase 84 46-116 U/L Total Protein 6.0 5.7-8.2 g/dL Albumin 3.8 3.2-4.8 g/dL Plasma/Serum Blood Alcohol < 3.0 <10 mg/dL Hemoglobin A1c 12.3 H <5.7 % A1C Lipase 31 12-53 U/L Assessment [id number] RESOLVING BILIARY COLIC HIDA SCAN NEG AFEBRILE VSS ABD SOFT NON ACUTE CONSIDER ELECTIVE GB SURGERY INDICATED IF CONSIDERED Plan discussed with: Patient ASPEN HUERTA MD Feb 11, 2024 15:00
[2024-02-11 16:56] VITALS: BP 126/73; PULSE 72; RESP 16; TEMP 97.8; O2SAT 95
[2024-02-11 19:30] VITALS: PULSE 67; RESP 15
--- NOTE | 2024-02-11 19:57 | DVHINCON2 ---
DATE OF CONSULTATION: 02/11/2024 HISTORY OF PRESENT ILLNESS: This patient is 49 years old, coming in with upper abdominal pain, now feeling much better. No nausea, vomiting. No constipation, diarrhea. No hematemesis, melena. No bleeding per rectum. PAST MEDICAL HISTORY: Diabetes and hypertension. PAST SURGICAL HISTORY: Umbilical and inguinal hernia repair. He also had hand surgery over 15 years ago for a fracture playing football. PHYSICAL EXAMINATION: VITAL SIGNS: Currently, he is afebrile with stable signs. HEENT: With no evidence of pallor, cyanosis, or jaundice. NECK: Supple, nontender with no thyromegaly or lymphadenopathy. CHEST AND LUNGS: Clear. HEART: Within normal limits. ABDOMEN: Soft, minimally tender. No rebound. EXTREMITIES: Unremarkable. NEUROLOGIC: Intact. CLINICAL IMPRESSION: Resolving biliary colic. At this point, a HIDA scan is negative for acute cholecystitis. PLAN: The plan will be to manage him conservatively and consider surgery electively as indicated as an outpatient. MD CIERRA Nguyen/ADRIENNE TID: [id number] RECEIPT: [id number] cc: Oseas Louis MD
[2024-02-11 21:00] VITALS: BP 125/76; PULSE 61; RESP 18; TEMP 98.5; O2SAT 96
--- NOTE | 2024-02-11 22:20 | DVHPN2 ---
Progress Note - Dictate Date Seen: Feb 11, 2024 Medical Necessity Reason Pt with a Central, PICC or Fol: No Subjective Patient seen at bedside, he is feeling better There was no nausea vomiting or abdominal pain today His HIDA scan was negative Patient has hyperglycemia His liver enzymes are trending down vital signs Vital Sign Date Time Temp Pulse Resp B/P (MAP) Pulse Ox O2 Delivery O2 Flow Rate FiO2 02/11/24 16:56 97.8 72 16 126/73 (90) 95 97.8 02/11/24 07:46 Room Air* 0 21 Total Intake and Output 02/10/24 02/10/24 02/11/24 15:00 23:00 07:00 Intake Total 950 ml 100 ml 0 ml Output Total 1 ml 350 ml Balance 950 ml 99 ml -350 ml medications Current Medications Medications Dose Ordered Sig/Devyn Route Start Time Stop Time Status Last Admin Dose Admin Sodium Chloride 1,000 ml @ 100 mls/hr Q10H IV 02/09/24 16:00 02/10/24 23:51 100 MLS/HR Acetaminophen/ Hydrocodone Bitart 1 tab Q4HP PRN PO 02/09/24 16:00 02/10/24 09:23 1 TAB Ondansetron HCl 4 mg Q4HP PRN IV 02/09/24 16:00 Acetaminophen 650 mg Q6HP PRN PO 02/09/24 16:00 Morphine Sulfate 2 mg Q4HPRN PRN IV 02/09/24 16:00 Famotidine 20 mg BID IV 02/09/24 22:00 02/11/24 10:06 20 MG Diagnostic Test (Pha) 1 strip IQ4HR 02/10/24 12:00 02/11/24 20:28 1 STRIP Insulin Human Regular IQ4HR SC 02/10/24 12:00 02/11/24 20:28 8 UNITS Dextrose 50 ml UD PRN IV 02/10/24 11:15 Ceftriaxone Sodium 50 ml @ 100 mls/hr DAILY@09 IV 02/11/24 09:00 02/11/24 10:05 100 MLS/HR Metronidazole 100 ml @ 100 mls/hr Q8HR IV 02/10/24 14:00 02/11/24 13:14 100 MLS/HR Sucralfate 1 gm QID@0600,1130,1700,2200 PO 02/11/24 11:30 02/11/24 17:31 1 GM objective General: NAD, AAOX3; no acute distress, morbidly obese Chest: lung guerrero clear to auscultation Heart: RRR, no murmur Abdomen: non-distended; nontender nondistended Extremities without clubbing cyanosis or edema Neuro nonfocal laboratory and microbiology Laboratory Tests 02/10/24 06:55 Test 02/10/24 06:55 Range/Units Serum Glucose 276 H 74-106 mg/dL Problems(with codes): (1) Poorly controlled diabetes mellitus (2) Hyperglycemia (3) Intractable abdominal pain (4) Cholelithiasis Prognosis Plan Advance to full liquid diet If he tolerates that we can advance to a 1800 kilocalorie ADA diet Diabetic management and counseling Protonix 40 mg p.o. daily Carafate 1 g p.o. q.h.s. Consider elective endoscopy if symptoms persist Patient has been seen by surgical consult and no acute surgical intervention recommended Plan discussed with: Patient, Other (Dr josi xie) TONG HUERTA MD Feb 11, 2024 22:20
[2024-02-12 01:00] VITALS: BP 109/68; PULSE 61; RESP 20; TEMP 97.7; O2SAT 98
[2024-02-12 09:00] VITALS: BP 109/68; PULSE 72; RESP 16; TEMP 97.7; O2SAT 98
[2024-02-12] MEDS ORDERED: LEVO500T91 PO (11:47)
[2024-02-12] MEDS ORDERED: METR-344 PO (11:47)
[2024-02-12] MEDS ORDERED: SUCR1TAB31 PO (11:47)
[2024-02-12] MEDS ORDERED: PANT40T PO (11:47)
--- NOTE | 2024-02-12 11:48 | DVHPN2 ---
Reviewed: Care Plan, H&P, Labs, Medications, Previous Orders, Radiology Changes from previous H/P or p: No Changes Eyes: No Pain, No Vision change, No Conjunctivae inflammation, No Eyelid inflammation, No Other, No Redness ENT: No Ear pain, No Ear discharge, No Nose pain, No Nose discharge, No Nose congestion, No Mouth pain, No Mouth swelling, No Throat pain, No Throat swelling, No Other Cardiovascular: No Chest Pain, No Palpitations, No Orthopnea, No Paroxysmal Noc. Dyspnea, No Edema, No Lt Headedness, No Other Respiratory: No Cough, No Dry, No Shortness of breath, No SOB with excertion, No Wheezing, No Hemoptysis, No Pleuritic Pain, No Sputum, No Other Gastrointestinal: Nausea, Vomiting, Abdominal Pain, Diarrhea; No Constipation, No Melena, No Hematochezia; Other (Abdominal distention) Genitourinary: No Dysuria, No Frequency, No Incontinence, No Hematuria, No Retention, No Other Musculoskeletal: No other, No neck pain, No shoulder pain, No arm pain, No back pain, No hand pain, No leg pain, No foot pain Skin: No Rash, No Lesions, No Jaundice, No Bruising, No Other Objective Vitals Vital Signs Date Time Temp Pulse Resp B/P (MAP) Pulse Ox O2 Delivery O2 Flow Rate FiO2 02/12/24 09:00 97.7 72 16 109/68 (82) 98 97.7 02/12/24 07:32 Room Air* 0 21 Intake/Output Intake and Output 02/12/24 07:00 Intake Total 1650 ml Balance 1650 ml Intake Oral 1500 ml IV Total 150 ml # Voids 4 # Bowel Movements 2 Medications Current Medications Medications Dose Ordered Sig/Devyn Route Start Time Stop Time Status Last Admin Dose Admin Sodium Chloride 1,000 ml @ 100 mls/hr Q10H IV 02/09/24 16:00 02/12/24 04:00 100 MLS/HR Acetaminophen/ Hydrocodone Bitart 1 tab Q4HP PRN PO 02/09/24 16:00 02/10/24 09:23 1 TAB Ondansetron HCl 4 mg Q4HP PRN IV 02/09/24 16:00 Acetaminophen 650 mg Q6HP PRN PO 02/09/24 16:00 Morphine Sulfate 2 mg Q4HPRN PRN IV 02/09/24 16:00 Famotidine 20 mg BID IV 02/09/24 22:00 02/12/24 08:37 20 MG Diagnostic Test (Pha) 1 strip IQ4HR 02/10/24 12:00 02/12/24 11:24 1 STRIP Insulin Human Regular IQ4HR SC 02/10/24 12:00 02/12/24 11:35 8 UNITS Dextrose 50 ml UD PRN IV 02/10/24 11:15 Ceftriaxone Sodium 50 ml @ 100 mls/hr DAILY@09 IV 02/11/24 09:00 02/12/24 08:37 100 MLS/HR Metronidazole 100 ml @ 100 mls/hr Q8HR IV 02/10/24 14:00 02/12/24 06:28 100 MLS/HR Sucralfate 1 gm QID@0600,1130,1700,2200 PO 02/11/24 11:30 02/12/24 08:37 1 GM Laboratory Results Laboratory Tests 02/10/24 06:55 Urinalysis Test 02/10/24 07:00 Urine Color Light-yellow (Yellow) Urine Clarity Clear (Clear) Urine pH 5.5 (5.0-9.0) Urine Specific [place] 1.046 (1.001-1.035) Urine Protein Negative (Negative) Urine Ketones 3+ (Negative) H Urine Blood Negative /uL (Negative) Urine Nitrite Negative (Negative) Urine Bilirubin Negative (Negative) Urine Urobilinogen Normal mg/dL (Negative) Urine Leukocyte Esterase Negative /uL (Negative) Urine RBC <1 /hpf (0 - 3) Urine WBC 1 /hpf (0 - 3) Urine Squamous Epithelial Cells Few /hpf (<5) Urine Bacteria None seen /hpf (None Seen) Urine Glucose 4+ mg/dL (Normal) H Labs and/or images reviewed: Labs reviewed by me, Image(s) reviewed by me Assessment/Plan Assessment/Plan Acute Abdominal Pain nausea and vomiting secondary to uncontrolled diabetes consult for GI Dr. Jeannie Bains appreciated advised pantoprazole and Carafate Uncontrolled diabetes with a blood sugars of 384: Insulin aggressive sliding scale Acute dehydration: IV fluids Poorly-controlled diabetes A1c 12.3 diabetic education Hypertension Hypercholesterolemia Gallstones, cholecystitis ruled out by negative HIDA scan, consult for surgeon Dr. Armando Bains advised conservative management Chronic current alcohol abuse: Counseling Pancreatitis ruled out lipase normal Patient is from [place] visiting the [facility] Plan discussed with: Patient Date of Service: Feb 12, 2024 Billing Provider: SHERIF BUSTILLO MD Common Visit Codes: [id number] INP/OBS CARE([facility]) SHERIF BUSTILLO MD Feb 12, 2024 11:48
--- NOTE | 2024-02-12 11:52 | DVHDS2 ---
Discharge Summary Date of Admission Feb 09, 2024 at 15:59 Date of Discharge: Feb 12, 2024 Admitting Diagnosis Acute abdominal pain Wounds: None Labs/Diagnostic Data: Laboratory Results Test 02/12/24 00:14 02/10/24 07:00 02/10/24 06:55 02/09/24 13:50 POC Glucose 143 mg/dl (70-106) Urine Color Light-yellow (Yellow) Urine Clarity Clear (Clear) Urine pH 5.5 (5.0-9.0) Urine Specific [place] 1.046 (1.001-1.035) Urine Protein Negative (Negative) Urine Ketones 3+ (Negative) Urine Blood Negative /uL (Negative) Urine Nitrite Negative (Negative) Urine Bilirubin Negative (Negative) Urine Urobilinogen Normal mg/dL (Negative) Urine Leukocyte Esterase Negative /uL (Negative) Urine RBC <1 /hpf (0 - 3) Urine WBC 1 /hpf (0 - 3) Urine Squamous Epithelial Cells Few /hpf (<5) Urine Bacteria None seen /hpf (None Seen) Urine Glucose 4+ mg/dL (Normal) Urine Opiates Screen Neg (NEGATIVE) Urine Fentanyl Screen Neg (NEGATIVE) Urine Barbiturates Screen Neg (NEGATIVE) Urine Phencyclidine Screen Neg (NEGATIVE) Urine Amphetamines Screen Neg (NEGATIVE) Urine Benzodiazepines Screen Neg (NEGATIVE) Urine Cocaine Screen Neg (NEGATIVE) Urine Cannabinoids Screen Neg (NEGATIVE) White Blood Count 5.9 10^3/uL (4.4-10.8) Red Blood Count 4.74 10^6/uL (4.5-5.90) Hemoglobin 14.5 g/dL (13.5-17.5) Hematocrit 43.6 % (41.0-53.0) Mean Corpuscular Volume 92.0 fL (80.0-100.0) Mean Corpuscular Hemoglobin 30.6 pg (28.0-32.0) Mean Corpuscular Hemoglobin Concent 33.3 g/dL (32.0-36.0) Red Cell Distribution Width 13.2 % (11.8-14.3) Platelet Count 144 10^3/uL (140-450) Mean Platelet Volume 10.0 fL (6.9-10.8) Neutrophils (%) (Auto) 77.2 % (37.0-80.0) Lymphocytes (%) (Auto) 14.8 % (10.0-50.0) Monocytes (%) (Auto) 7.9 % (0.0-12.0) Eosinophils (%) (Auto) 0.0 % (0.0-7.0) Basophils (%) (Auto) 0.1 % (0.0-2.0) Neutrophils # (Auto) 4.6 10 ^3/uL (1.6-8.6) Lymphocytes # (Auto) 0.9 10 ^3/uL (0.4-5.4) Monocytes # (Auto) 0.5 10 ^3/uL (0-1.3) Eosinophils # (Auto) 0 10 ^3/uL (0-0.8) Basophils # (Auto) 0 10 ^3/uL (0-0.2) Nucleated Red Blood Cells 0.1 % Sodium Level 138 mmol/L (136-145) Potassium Level 3.7 mmol/L (3.5-5.1) Chloride Level 109 mmol/L (98-107) Carbon Dioxide Level 20 mmol/L (20-31) Anion Gap 9 (5-15) Blood Urea Nitrogen 14 mg/dL (9-23) Creatinine 0.93 mg/dL (0.700-1.30) Glomerular Filtration Rate Calc 99 mL/min (>90) BUN/Creatinine Ratio 15.1 (10.0-20.0) Serum Glucose 276 mg/dL (74-106) Calcium Level 8.6 mg/dL (8.7-10.4) Total Bilirubin 1.3 mg/dL (0.2-1.0) Aspartate Amino Transferase (AST) 19 U/L (13-40) Alanine Aminotransferase (ALT) 48 U/L (7-40) Alkaline Phosphatase 84 U/L (46-116) Total Protein 6.0 g/dL (5.7-8.2) Albumin 3.8 g/dL (3.2-4.8) Plasma/Serum Blood Alcohol < 3.0 mg/dL (<10) Hemoglobin A1c 12.3 % A1C (<5.7) Lipase 31 U/L (12-53) Other Laboratory Tests 02/10/24 06:55 Brief Hx & Hospital Course: 49 year-old male from [place] visiting family members in [facility] [place] came in complaining of abdominal pain. History of diabetes poorly controlled with a A1c 12.3 blood sugars were high 384 treated with the insulin sliding scale CT abdomen pelvis showed gallstones HIDA scan negative for cholecystitis seen by GI Dr. Jeannie Bains advised pantoprazole and Carafate seen by surgeon Dr. Armando Bains advised conservative management. Patient feels better and wants to go home. Discharged home. Prescription for Levaquin Flagyl pantoprazole Carafate transmitted to the pharmacy . Consults/Reason for consult GI Dr. Jeannie Bains Surgeon Dr. Armando Bains Operations or Procedures CT abdomen pelvis without contrast HIDA scan Condition at Discharge: Fair Final Diagnosis/Problems List Abdominal Pain nausea and vomiting secondary to uncontrolled diabetes consult for GI Dr. Jeannie Bains appreciated advised pantoprazole and Carafate Uncontrolled diabetes with a blood sugars of 384: Insulin aggressive sliding scale Acute dehydration: IV fluids Poorly-controlled diabetes A1c 12.3 diabetic education Hypertension Hypercholesterolemia Gallstones, cholecystitis ruled out by negative HIDA scan, consult for surgeon Dr. Armando Bains advised conservative management Chronic current alcohol abuse: Counseling Pancreatitis ruled out lipase normal Discharge Disposition: Home Discharge Instruct/Medications Diet: Consistent carbohydrate Activity: Light activity Follow Up/Referral: Follow up with your primary Dr in one week Continue all your previous home medications Use medications as prescribed Medications: Levaquin Flagyl Pantoprazole Carafate Transmitted to [facility] (Time taken for discharge summary 39 minutes) Discharge Statement: "Patient was advised to return to the ER or call 911 if any headaches, dizziness, shortness of breath, chest pain, abdominal pain, bleeding, fevers, or worsening of medical condition. Patient was counseled about treatment plan, medications, possible side effects, patientverbalized understanding. All questions were answered to the best of my ability. This discharge took greater then 30 minutes in planning, reviewing documentation, counseling the patient, and discussing with other team members." ASSESSMENT ASSESSMENT Hospital Course Improved Assessment Abdominal Pain nausea and vomiting secondary to uncontrolled diabetes consult for GI Dr. Jeannie Bains appreciated advised pantoprazole and Carafate Uncontrolled diabetes with a blood sugars of 384: Insulin aggressive sliding scale Acute dehydration: IV fluids Poorly-controlled diabetes A1c 12.3 diabetic education Hypertension Hypercholesterolemia Gallstones, cholecystitis ruled out by negative HIDA scan, consult for surgeon Dr. Armando Bains advised conservative management Chronic current alcohol abuse: Counseling Pancreatitis ruled out lipase normal Date of Service: Feb 12, 2024 Billing Provider: SHERIF BUSTILLO MD Common Visit Codes: 13710-EZW/OBS DISCH DAY >30min SHERIF BUSTILLO MD Feb 12, 2024 11:52
[2024-02-12 12:13] VITALS: TEMP 36.5
[2024-02-12 12:15] VITALS: TEMP 36.5
[2024-02-12 12:48] VITALS: BP 112/69; PULSE 65; RESP 16; TEMP 98.3; O2SAT 94
--- NOTE | 2024-02-12 16:01 | DVHPN2 ---
Progress Note - Dictate Date Seen: Feb 12, 2024 (Late entry time of visit 1:00 p.m.) Medical Necessity Reason Pt with a Central, PICC or Fol: No Subjective Patient is seen at bedside, no new complaints, tolerating diet There was no nausea vomiting or abdominal pain today His HIDA scan was negative Patient has hyperglycemia His liver enzymes are trending down vital signs Vital Sign Date Time Temp Pulse Resp B/P (MAP) Pulse Ox O2 Delivery O2 Flow Rate FiO2 02/12/24 12:48 98.3 65 16 112/69 (83) 94 98.3 02/12/24 07:32 Room Air* 0 21 Total Intake and Output 02/11/24 02/11/24 02/12/24 15:00 23:00 07:00 Intake Total 150 ml 1500 ml Balance 150 ml 1500 ml objective General: NAD, AAOX3; no acute distress, morbidly obese Chest: lung guerrero clear to auscultation Heart: RRR, no murmur Abdomen: non-distended; nontender nondistended Extremities without clubbing cyanosis or edema Neuro nonfocal laboratory and microbiology Laboratory Tests 02/10/24 06:55 Test 02/10/24 06:55 Range/Units Serum Glucose 276 H 74-106 mg/dL Problems(with codes): (1) Poorly controlled diabetes mellitus (2) Hyperglycemia (3) Intractable abdominal pain (4) Cholelithiasis Prognosis Plan Discharge planning is in progress Continue Protonix 40 mg p.o. q.a.m. Carafate 1 g p.o. q.h.s. DC alcohol smoking Low-fat diet Patient will follow up with his PCP in [place] to discuss elective panendoscopy Once again thank you for allowing me to participate in the care of this patient Plan discussed with: Patient, Other (Dr Oseas xie) TONG HUERTA MD Feb 12, 2024 16:01
--- NOTE | 2024-02-13 13:05 | ECG ---
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
== END 2024-02-12 12:58 | disposition home or self-care (01) | DRG 420 ==
LOC: ER 11:31 → OVERFLOW 15:59 → WEST WING 22:37
PROVIDERS: ATTEND Family Medicine
DX: E11.65 Type 2 diabetes mellitus with hyperglycemia (principal); K76.0 Fatty (change of) liver, not elsewhere classified; R16.0 Hepatomegaly, not elsewhere classified; K80.20 Calculus of gallbladder without cholecystitis without obstruction; E86.0 Dehydration; E78.00 Pure hypercholesterolemia, unspecified; I10 Essential (primary) hypertension; F10.10 Alcohol abuse, uncomplicated; Z80.3 Family history of malignant neoplasm of breast; Z79.899 Other long term (current) drug therapy; Y90.0 Blood alcohol level of less than 20 mg/100 ml; E66.9 Obesity, unspecified; Z68.38 Body mass index [BMI] 38.0-38.9, adult
CPT/HCPCS: 36415; 74176; 76705; 78226; 80053; 80307; 80320; 81001; 82962; 83036; 83690; 85025; 93005; 96360; 96372; G0378; J1815; J3490